=== PATIENT | male | born 1975 | race Hispanic/Latino ===

== ENCOUNTER 2016-11-26 16:18 | Emergency (ER) | payer MEDICAID ==
[2016-11-26 16:26] VITALS: O2SAT 95
[2016-11-26] MEDS ORDERED: Naproxen 550 mg Tab PO STA (16:56)
[2016-11-26] MEDS ORDERED: Naproxen 550 mg Tab PO ONE (17:05)
--- NOTE | 2016-11-26 17:05 | C.PDOC ---
History Of Present Illness 41 yo male c/o right writs pain and lower back pain s/p fall a few hours ago. Pt notes that he was climbing a ladder, his foot missed the step and fell. Notes his right wrist hit the cabinet next to him and then he fell on to his lower back/buttock. Pt continued working but pain persists. No change in sensation, no urinary/bowel incontinence, fever. Time Seen by Provider: 11/26/16 16:30 Chief Complaint (Nursing): Back Pain History Per: Patient History/Exam Limitations: no limitations Onset/Duration Of Symptoms: Hrs Current Symptoms Are (Timing): Still Present Quality Of Discomfort: "Pain" Previous Symptoms: Prior Injury Associated Symptoms: None. denies: Incontinence, New Weakness, New Numbness Exacerbating Factor(s): Nothing Recent travel outside of the [place]: No Additional History Per: Patient Past Medical History Reviewed: Historical Data, Nursing Documentation, Vital Signs Vital Signs: Last Vital Signs Temp 98.5 F 11/26/16 17:48 Pulse 78 11/26/16 17:48 Resp 18 11/26/16 17:48 BP 131/74 11/26/16 17:48 Pulse Ox 95 11/26/16 18:09 - Medical History PMH: No Chronic Diseases Surgical History: No Surg Hx Family History: States: No Known Family Hx - Social History Hx Tobacco Use: Yes Hx Alcohol Use: No Hx Substance Use: No - Immunization History Hx Tetanus Toxoid Vaccination: No Hx Influenza Vaccination: No Hx Pneumococcal Vaccination: No Review Of Systems Except As Marked, All Systems Reviewed And Found Negative. Genitourinary: Negative for: Incontinence Musculoskeletal: Positive for: Back Pain (lower), Hand Pain (right wrist). Negative for: Shoulder Pain, Arm Pain Neurological: Negative for: Weakness, Numbness Physical Exam - Physical Exam Appears: Well, Non-toxic, No Acute Distress Skin: Normal Color, Warm, Dry Head: Atraumatic, Normacephalic Eye(s): bilateral: Normal Inspection, EOMI Nose: Normal Oral Mucosa: Moist Neck: Normal, Normal ROM, No Midline Cervical Tenderness, Supple Chest: Symmetrical Cardiovascular: Rhythm Regular Respiratory: Normal Breath Sounds Gastrointestinal/Abdominal: Normal Exam, Soft, No Tenderness Back: No CVA Tenderness, Paraspinal Tenderness Extremity: No Normal ROM (decreased ROM secondary to pain), Tenderness ((+) snuff box tenderness), Capillary Refill (< 2 sec), No Swelling Extremity: Bilateral: Normal Color And Temperature Pulses: Left Radial: Normal, Right Radial: Normal Neurological/Psych: Oriented x3, Normal Speech, Normal Motor, Normal Sensation ED Course And Treatment O2 Sat by Pulse Oximetry: 95 (on RA) Pulse Ox Interpretation: Normal - Other Rad LS spine x-ray X-Ray: Interpreted by Me, Viewed By Me Interpretation: No acute fracture or dislocation. Right wrist x-ray X-Ray: Interpreted by Me, Viewed By Me Interpretation: (+) chronic changes s/p surgery (-) acute fx. Progress Note: LS spine, right wrist x-ray ordered and reviewed. Pt was given Naproxen. On re-eval, pt reports improvement of pain. No fever, no bony tenderness, no numbness, no weakness, or abdominal pain. Patient is ambulatory in the emergency department with no signs of discomfort. Upon further questioning pt notes the injury happened Thursday. He [facility] and another hospital two days ago. He is requesting RX refill for Naproxen. Previous charts from [place] reviewed, including CT L/S and wrist XR. No acute findings. Thumb spica applied by computer system technician. Instructed to follow up with ortho in 1-2 days. Disposition - Disposition Referrals: Miguel Diaz MD [Staff Provider] - Disposition: HOME/ ROUTINE Disposition Time: 17:52 Condition: STABLE Additional Instructions: Follow up with your primary medical doctor or clinic in 2-5 days for further evaluation. Take medications as prescribed. Return to the emergency department at any time if symptoms persist or worsen. Prescriptions: Naproxen [Naprosyn] 1 tab PO BID PRN #25 tab PRN Reason: Pain Instructions: Contusion in Adults (ED) Forms: [employer] (Korean) - Clinical Impression Clinical Impression: Low back pain, Wrist pain - PA / DISABILITY SPECIALIST / Resident Statement MD/DO has reviewed & agrees with the documentation as recorded. - Scribe Statement The provider has reviewed the documentation as recorded by the Scribe Celeste Garcia All medical record entries made by the Scribe were at my direction and personally dictated by me. I have reviewed the chart and agree that the record accurately reflects my personal performance of the history, physical exam, medical decision making, and the department course for this patient. I have also personally directed, reviewed, and agree with the discharge instructions and disposition.
[2016-11-26 17:50] VITALS: BP 131/74; PULSE 78; RESP 18; TEMP 98.5
--- NOTE | 2016-11-27 08:12 | RAD ---
PROCEDURE: Right Wrist Radiographs. HISTORY: trauma COMPARISON: None. FINDINGS: BONES: Abnormal carpal anatomy- partial carpal bone excision. Residual carpal bones suggesting some osseous fragmentation or/ossific debris. Bone mineralization distal forearm and carpal bones and carpal metacarpal articulations are mixed lucent and sclerotic changes. The PC format and we tram and trapezium are noted. Much of the remaining carpal bones are abnormal an appearing and/or resected. Osseous sclerotic hypertrophic changes scattered over carpus. No metacarpal fracture. Carpal - 5th metacarpal hypertrophic arthrosis. No distal forearm fractures. JOINTS: Appearing intercarpal SOFT TISSUES: Normal. OTHER FINDINGS: None. IMPRESSION: Extensive carpal postsurgical changes. Probable prior chronic osteomyelitis. No gross acute fracture. No acute appearing periosteal reaction Limited exam without priors regarding interval changes.
--- NOTE | 2016-11-27 08:14 | RAD ---
PROCEDURE: Radiographs of the Lumbar Spine. HISTORY: trauma COMPARISON: No prior. FINDINGS: BONES: Lumbar lordotic straightening. No listhesis. No fracture. DISC SPACES: L5-S1 mild disc space narrowing. OTHER FINDINGS: L4 and L3-4 right facet hypertrophic arthrosis IMPRESSION: No fracture or subluxation. L5-S1 disc space narrowing Lumbar lordotic straightening. Spasm versus positioning
== END 2016-11-26 17:58 | disposition home or self-care (01) ==
LOC: C.ER 16:18
DX: M54.5 Low back pain (principal); M25.531 Pain in right wrist

== ENCOUNTER 2017-07-16 23:44 | Inpatient (IN) | payer MEDICAID ==
--- NOTE | 2017-07-17 00:02 | C.PDOC ---
History Of Present Illness 41 year old male presents to the ED for a heroin detox. Last dose of heroin was a couple hours ago. Denies suicidal ideation, homicidal ideation, chest pain, fever, chills, cough, shortness of breath, nausea, and vomiting. Time Seen by Provider: 07/17/17 00:01 Chief Complaint (Nursing): Substance Abuse History Per: Patient History/Exam Limitations: no limitations Onset/Duration Of Symptoms: Hrs Current Symptoms Are (Timing): Still Present Suicide/Self Injury Attempted (Context): None Modifying Factor(s): None Severity: None Associated Symptoms: denies: Anger Involuntary Hold By: None Recent travel outside of the [place]: No Additional History Per: Patient Past Medical History Reviewed: Historical Data, Nursing Documentation, Vital Signs Vital Signs: Last Vital Signs Temp 97.1 F L 07/17/17 04:17 Pulse 89 07/17/17 04:17 Resp 20 07/17/17 04:17 BP 130/70 07/17/17 04:17 Pulse Ox 98 07/17/17 04:17 Surgical History: No Surg Hx Family History: States: Unknown Family Hx - Social History Hx Tobacco Use: Yes Hx Alcohol Use: No Hx Substance Use: No - Immunization History Hx Tetanus Toxoid Vaccination: No Hx Influenza Vaccination: No Hx Pneumococcal Vaccination: No Review Of Systems Constitutional: Negative for: Fever, Chills Cardiovascular: Negative for: Chest Pain Respiratory: Negative for: Cough, Shortness of Breath Gastrointestinal: Negative for: Nausea, Vomiting Musculoskeletal: Negative for: Back Pain Skin: Negative for: Rash Neurological: Negative for: Weakness Psych: Positive for: Other (Heroin Use). Negative for: Depression, Suicidal ideation Physical Exam - Physical Exam Appears: Well, No Acute Distress, Other (pleasant, cooperative) Skin: Warm, Dry Head: Normacephalic Eye(s): bilateral: Normal Inspection, PERRL, EOMI Oral Mucosa: Moist Throat: Normal, No Erythema, No Exudate, No Mass Neck: Normal ROM Chest: No Deformity Cardiovascular: Rhythm Regular, No Murmur Respiratory: Normal Breath Sounds, No Decreased Breath Sounds, No Rales, No Rhonchi, No Wheezing Gastrointestinal/Abdominal: Soft, No Tenderness, No Mass, No Guarding, No Rebound Back: Normal Inspection, No CVA Tenderness, No Vertebral Tenderness, No Paraspinal Tenderness Extremity: Tenderness, No Pedal Edema, No Deformity Extremity: Bilateral: Atraumatic Neurological/Psych: Oriented x3, Normal Speech, Normal Sensation, Normal Reflexes Gait: Steady ED Course And Treatment - Laboratory Results Result Diagrams: 07/17/17 00:17 07/17/17 00:17 Progress Note: Time: 0017. Plan: -- Alcohol Serum. -- CMP. -- Urine Drug Screen. -- CBC with differentials. -- Urinalysis Disposition Discussed With Dr.: Miguel Fermin Comment: accepted the pt on his service and took over the care at 6:28AM Doctor Will See Patient In The: Hospital Counseled Patient/Family Regarding: Studies Performed, Diagnosis - Disposition Disposition: HOSPITALIZED Disposition Time: 00:02 Condition: FAIR Forms: [employer] (Romanian) - POA Present On Arrival: None - Clinical Impression Clinical Impression: Drug abuse, Drug dependence - PA / BAND HEAD SAW OPERATOR / Resident Statement MD/DO has reviewed & agrees with the documentation as recorded. - Scribe Statement The provider has reviewed the documentation as recorded by the Scribe Jace Benson Decision To Admit - Pt Status Changed To: Hospital Disposition Of: Inpatient - Admit Certification Admit to Inpatient:: After my assessment, the patient will require hospitalization for at least two midnights. This is because of the severity of symptoms shown, intensity of services needed, and/or the medical risk in this patient being treated as an outpatient. - InPatient: Physician Admission Certification: I certify that this patient requires 2 or more midnights of care for the following reason:: After my assessment, the patient will require hospitalization for at least two midnights. This is because of the severity of symptoms shown, intensity of services needed, and/or the medical risk in this patient being treated as an outpatient. - . Bed Request Type: Detox Admitting Physician: Miguel Fermin Patient Diagnosis: Drug abuse, Drug dependence
[2017-07-17 00:06] VITALS: BMI 24.8
[2017-07-17 00:21] LABS: BASO # 0.1 K/uL (0.0-0.2); BASO % 1.2 % (0.0-2.0); EOS # 0.2 K/uL (0.0-0.7); EOS % 2.2 % (0.0-4.0); HEMOGLOBIN 16.2 g/dL (12.0-18.0); LYMPH # 2.7 K/uL (1.0-4.3); LYMPH % 37.8 % (20.0-40.0); MEAN CELL VOLUME 90.3 fL (80.0-94.0); MEAN CORPUSCULAR HEMOGLOBIN 31.2 pg (27.0-31.0); MEAN CORPUSCULAR HGB CONC 34.6 g/dL (33.0-37.0); MEAN PLATELET VOLUME 9.3 fL (7.2-11.7); MONO # 0.8 K/uL (0.0-0.8); MONO % 10.7 % (0.0-10.0); NEUT # 3.4 K/uL (1.8-7.0); NEUT % 48.1 % (50.0-75.0); RBC 5.17 Mil/uL (4.40-5.90); RED CELL DISTRIBUTION WIDTH 13.9 % (11.5-14.5); WHITE BLOOD COUNT 7.1 K/uL (4.8-10.8)
[2017-07-17 00:29] LABS: URINE BILIRUBIN NEGATIVE (NEGATIVE); URINE BLOOD NEGATIVE (NEGATIVE); URINE CLARITY Clear (Clear); URINE COLOR Yellow (YELLOW); URINE GLUCOSE (UA) NORMAL (Normal); URINE LEUKOCYTE ESTERASE NEG Leu/uL (Negative); URINE PROTEIN NEGATIVE (NEGATIVE); URINE UROBILINOGEN NORMAL mg/dL (0.2-1.0)
[2017-07-17 00:38] LABS: ALB/GLOB RATIO 0.8 (1.0-2.1); ALBUMIN 4.1 g/dL (3.5-5.0); ALT/SGPT 71 U/L (21-72); AST/SGOT 64 U/L (17-59); BLOOD UREA NITROGEN 7 mg/dL (9-20); GFR AFRICAN-AMERICAN > 60; GFR NON-AFRICAN AMERICAN > 60
[2017-07-17 00:46] LABS: BARBITURATES, UR NEGATIVE (NEGATIVE); BENZODIAZEPINES, UR NEGATIVE (NEGATIVE); PHENCYCLIDINE, UR NEGATIVE (NEGATIVE)
[2017-07-17 00:59] LABS: OPIATES, UR POSITIVE (NEGATIVE)
--- NOTE | 2017-07-17 08:10 | PCM.BM ---
Treatment Plan Problems - Problems identified on initial assessmt potential for opiate withdrawals Date Initiated: 07/17/17 Assessment reference: NA Status: Active Treatment assets and liabiliti Patient Assests: adapts well, cooperative, motivated, ADL independent, negotiates basic needs Patient Liabilities: substance abuse - Milieu Protocol Maintain good personal hygiene: daily Encourage regular showers, daily Remind patient to perform daily oral care, daily Assist patient to perform ADL's Conduct patient checks and document Observation sheet: Q15 minutes Maintain personal safety: every shift Educate patient to report safety concerns to staff, every shift Monitor environment for contraband/sharps Medication safety: Monitor for expected outcome, potential side effects: every shift, Assess barriers to learning: every shift, Assess readiness for medication education: every shift
[2017-07-17] MEDS ORDERED: Aluminum Hydroxide/Magnesium Hydroxide Susp (30 mL) PO PRN (08:40)
--- NOTE | 2017-07-17 08:42 | PCM.PSYCH ---
Initial Psychiatric Evaluation - Initial Psychiatric Evaluation Type of Admission: Voluntary Legal Status: Capacity Chief Complaint (in patient's own words): "Heroin" History of Present Illness and Precipitating Events: The patient is seen, chart reviewed and case discussed. This is a 41-year-old male, single with 2 children, 16-year-old twins , patient lives in [place] with his girlfriend. He is a building construction supervisor. The patient is using 10 backs IV heroin, last one year. However, he started when he was 18 years old. He denies using painkillers or having ODs. He also denies using alcohol or other drugs. He smokes cigarettes 10-20 a day. He denies psych symptoms. He was in detox twice but no rehabilitation or no methadone or Suboxone treatment. Past psych history: Denies Medical history: Denies Family psych history: He doesn't know his family that much. Past Psychiatric History - Past Psychiatric History Previous Treatment History: None Pertinent Medical Hx (Current Medical&Sleep Prob, Allergies): Allergies Allergy/AdvReac Type Severity Reaction Status Date / Time No Known Allergies Allergy Verified 07/17/17 00:03 No Known Home Med 07/17/17 Review of Systems - Neurological Neurological: UNREMARKABLE - Psychiatric Psychiatric: Abnormal Sleep Pattern, Anxiety, Difficulty Concentrating. absent : Hallucinations, Irritability, Paranoia, Suicidal Ideation Mental Status Examination - Personal Presentation Personal Presentation: Looks stated age - Affect Affect: Constricted - Motor Activity Motor Activity: Calm - Reliability in Providing Information Reliability in Providing Information: Good - Speech Speech: Organized - Mood Mood: Anxious - Formal Thought Process Formal Thought Process: No Impairment - Cognitive Functions Orientation: Person, Place, Situation, Time Sensorium: Alert Attention/Concentration: Attentive Estimate of Intelligence: Average Judgement: Intact, as evidence by: Insight regarding need for hospitalization Memory: Recent intact, as evidence by: Ability to recall events of the day, Remote intact, as evidenced by: Abilit to recall sig. life events - Risk Risk: Withdrawal, Diminished functioning - Strength & Assets Inventory Strength & Assets Inventory: Cooperative - Limitations Limitations: Other DSM 5 DX - DSM 5 DSM 5 [facility]: [facility] Opioid use d/o- severe Tobacco use d/o- moderate - Recommended/Plan of Treatment Treatment Recommendations and Plan of Treatment: Taper with methadone Gabapentin for augmentation if needed As needed medications All risks, benefits and alternatives of the meds discussed, and the pt agreed and understood. Attend groups and activities Supportive therapy and psychoeducation [place] for abstinence CBT for relapse prevention Encourage MAT Refer to rehab or IOP, and self-help groups Smoking cessation with [place] Nicotine patch if needed 34 min Projected ELOS: 4-5 days Prognosis: good w treatment - Smoking Cessation Smoking Cessation Initiated: Yes
[2017-07-18 01:00] VITALS: RESP 18; TEMP 98.5
[2017-07-18 09:42] VITALS: BP 136/82; PULSE 71; O2SAT 98
--- NOTE | 2017-07-18 10:09 | PCM.PYCHDC ---
Mental Status Examination - Mental Status Examination Orientation: Person Discharge Summary - Discharge Note Consultations:: List each consultation separately and include: 1. Reason for request. 2. Findings. 3. Follow-up Summary of Hospital Course include:: 1. Description of specific treatment plan utilized for patients during their course of treatmen. 2. Summarize the time- course for resolution of acute symptoms and/or regressed behaviors. 3. Describe issues identified and worked on during hospitalization. 4. Describe medication utilized. 5. Describe medical problems identified and treated. 6. Reassessment of suicide risk Summary of Hospital Course: The patient is seen, chart reviewed and case discussed. This is a 41-year-old male, single with 2 children, 16-year-old twins , patient lives in [place] with his girlfriend. He is a senior construction manager. The patient is using 10 backs IV heroin, last one year. However, he started when he was 18 years old. He denies using painkillers or having ODs. He also denies using alcohol or other drugs. He smokes cigarettes 10-20 a day. He denies psych symptoms. He was in detox twice but no rehabilitation or no methadone or Suboxone treatment. Past psych history: Denies Medical history: Denies Family psych history: He doesn't know his family that much. - Final Diagnosis (DSM 5) Condition upon Discharge: FAIR Disposition: AGAINST MEDICAL ADVICE Follow-up Treatment Plan: Taper with methadone Gabapentin for augmentation if needed As needed medications All risks, benefits and alternatives of the meds discussed, and the pt agreed and understood. Attend groups and activities Supportive therapy and psychoeducation [place] for abstinence CBT for relapse prevention Encourage MAT Refer to rehab or IOP, and self-help groups Smoking cessation with [place] Nicotine patch if needed 34 min
== END 2017-07-18 10:30 | disposition left against medical advice (07) | DRG 743 ==
LOC: C.ER 23:44 → C.7D 07-17 06:27
PROVIDERS: ADMIT Psychiatry & Neurology Psychiatry; ATTEND Psychiatry & Neurology Psychiatry
PROC: HZ2ZZZZ Detoxification Services for Substance Abuse Treatment (ICD-10-PCS; principal; 2017-07-17)
PROC: HZ59ZZZ Individual Psychotherapy for Substance Abuse Treatment, Supportive (ICD-10-PCS; 2017-07-17)
PROC: HZ46ZZZ Group Counseling for Substance Abuse Treatment, Psychoeducation (ICD-10-PCS; 2017-07-17)
DX: F11.23 Opioid dependence with withdrawal (principal); F17.210 Nicotine dependence, cigarettes, uncomplicated; G47.9 Sleep disorder, unspecified